=== PATIENT | female | born 1985 | race Caucasian/White ===

== ENCOUNTER 2017-11-16 22:24 | Emergency (ER) | payer MEDICAID ==
[2017-11-16 23:00] VITALS: TEMP 98.6; O2SAT 100
--- NOTE | 2017-11-16 23:24 | C.PDOC ---
History Of Present Illness 32 y/o female presents to the ED complaining of SOB and nasal congestion. Patient was seen by PMD this morning and given Zithromax and cough medication. States symptoms persisted tonight, prompting this ED visit. Patient also complains she was not prescribed an inhaler, requesting nebulizer treatment. Otherwise she denies fever, chills, nausea, vomiting, dizziness, leg pain/swelling, or other complaints. Time Seen by Provider: 11/16/17 23:24 Chief Complaint (Nursing): Shortness Of Breath History Per: Patient History/Exam Limitations: no limitations Onset/Duration Of Symptoms: Days Current Symptoms Are (Timing): Still Present Initiating Event: Out Of Medications Past Medical History Reviewed: Historical Data, Nursing Documentation, Vital Signs Vital Signs: Last Vital Signs Temp 98.6 F 11/16/17 22:53 Pulse 70 11/16/17 22:53 Resp 16 11/16/17 22:53 BP 95/67 L 11/16/17 22:53 Pulse Ox 100 11/16/17 22:53 - Medical History PMH: Asthma, Back Problems, Migraine Surgical History: No Surg Hx Family History: States: Unknown Family Hx - Social History Hx Tobacco Use: No Hx Alcohol Use: No Hx Substance Use: No - Immunization History Hx Tetanus Toxoid Vaccination: Yes Hx Influenza Vaccination: No Hx Pneumococcal Vaccination: Yes Review Of Systems Constitutional: Negative for: Fever, Chills ENT: Positive for: Nose Congestion Cardiovascular: Negative for: Chest Pain, Palpitations Respiratory: Positive for: Cough, Shortness of Breath Gastrointestinal: Negative for: Nausea, Vomiting Neurological: Negative for: Headache, Dizziness Physical Exam - Physical Exam Appears: Non-toxic, No Acute Distress, Other (Speaking in complete sentences) Skin: Warm, Dry Head: Normacephalic Eye(s): bilateral: Normal Inspection Ear(s): Bilateral: Normal Nose: Normal, No Discharge Throat: Normal (oropharynx clear), No Erythema, No Exudate Neck: Trachea Midline, Supple Chest: Symmetrical Cardiovascular: Rhythm Regular Respiratory: No Rales, No Rhonchi, No Wheezing Gastrointestinal/Abdominal: Soft, No Tenderness, No Distention Extremity: Bilateral: Atraumatic, Normal Color And Temperature Pulses: Left Dorsalis Pedis: Normal, Right Dorsalis Pedis: Normal Neurological/Psych: Oriented x3 ED Course And Treatment O2 Sat by Pulse Oximetry: 100 (RA) Pulse Ox Interpretation: Normal Progress Note: Administered duoneb treatment. Will reassess after treatment. Reevaluation Time: 01:07 Reassessment Condition: Improved Disposition Counseled Patient/Family Regarding: Studies Performed, Diagnosis, Need For Followup, Rx Given - Disposition Referrals: Catrachita Pitt MD [Medical Doctor] - Disposition: HOME/ ROUTINE Disposition Time: 23:24 Condition: FAIR Additional Instructions: Please finish all your antibiotics, and return if symptoms recur Prescriptions: Albuterol HFA [Ventolin HFA 90 mcg/actuation (8 g)] 2 puff IH [id number] #1 puff Instructions: Acute Bronchitis, Adult (DC) Forms: [facility] (Greek) - Clinical Impression Clinical Impression: Bronchitis - Scribe Statement The provider has reviewed the documentation as recorded by the Scribe (Lizabeth Cornejo) Provider Attestation: All medical record entries made by the Scribe were at my direction and personally dictated by me. I have reviewed the chart and agree that the record accurately reflects my personal performance of the history, physical exam, medical decision making, and the department course for this patient. I have also personally directed, reviewed, and agree with the discharge instructions and disposition.
[2017-11-16] MEDS ORDERED: Albuterol-Ipratrop 3 mg / 0.5 (3 ml) UD ONE (23:55)
[2017-11-16 23:59] VITALS: RESP 18
[2017-11-17] MEDS: Albuterol-Ipratrop 3 mg / 0.5 (3 ml) UD IH SCH ×2 (00:55→01:19)
[2017-11-17] MEDS ORDERED: Albuterol-Ipratrop 3 mg / 0.5 (3 ml) UD ONE (00:57)
[2017-11-17 01:29] VITALS: BP 118/72; PULSE 88
== END 2017-11-17 01:29 | disposition home or self-care (01) ==
LOC: C.ER 22:24
DX: J40 Bronchitis, not specified as acute or chronic (principal)

== ENCOUNTER 2018-01-10 17:04 | Emergency (ER) | payer MEDICAID ==
[2018-01-10 17:14] VITALS: BP 99/68; PULSE 88; RESP 18; TEMP 98; O2SAT 98
--- NOTE | 2018-01-10 17:53 | C.PDOC ---
History Of Present Illness 32 year old female presents to the ED for evaluation of headache for 3 days. Patient also complains of digitally and positionally reproducible chest discomfort. 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 She took two tablets of Tylenol twice yesterday, but none today. Patient denies fever, chills, shortness of breath, nausea, vomiting, or sick contacts. Time Seen by Provider: 01/10/18 17:26 Chief Complaint (Nursing): Headache History Per: Patient History/Exam Limitations: no limitations Onset/Duration Of Symptoms: Days (3) Current Symptoms Are (Timing): Still Present Quality: "Pain" Associated Symptoms: denies: Nausea, Vomiting Additional History Per: Patient Past Medical History Reviewed: Historical Data, Nursing Documentation, Vital Signs Vital Signs: Last Vital Signs Temp 98 F 01/10/18 17:11 Pulse 88 01/10/18 17:11 Resp 18 01/10/18 17:11 BP 99/68 L 01/10/18 17:11 Pulse Ox 98 01/10/18 17:11 - Medical History PMH: Asthma, Back Problems, Migraine Surgical History: No Surg Hx Family History: States: Unknown Family Hx - Social History Hx Tobacco Use: No Hx Alcohol Use: No Hx Substance Use: No - Immunization History Hx Tetanus Toxoid Vaccination: No Hx Influenza Vaccination: No Hx Pneumococcal Vaccination: No Review Of Systems Cardiovascular: Positive for: Other (chest discomfort ) Neurological: Positive for: Headache Physical Exam - Physical Exam Appears: Non-toxic, No Acute Distress Skin: Normal Color, Warm, Dry Head: Atraumatic, Normacephalic Eye(s): bilateral: Normal Inspection Ear(s): Bilateral: Normal Nose: Other (increased erythema with right-sided kissing turbinates ) Oral Mucosa: Moist Neck: Supple Chest: Symmetrical, No Deformity, Tenderness (digitally and positionaly reproducible to parasternal areas), 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 work cause Disposition Doctor Will See Patient In The: Office Counseled Patient/Family Regarding: Studies Performed, Diagnosis - Disposition Referrals: [facility] [Outside] [facility] [Outside] [facility] [Outside] [facility] [Outside] Disposition: HOME/ ROUTINE Disposition Time: 17:52 Condition: GOOD Additional Instructions: dolor de sondra porque de inflammaci'n de las pasajes nasales Motrin/advil/ibuprofeno 400-600 mg cada 6 horas arnel necessario Pseudafed 30 mg cada 6 horas arnel necessario (se descongestiona las pasajes nasales) Nasonex/Flonase: 1 espray cada lado del nariz cada 12 horas se baja inflammaci'n de las pasajes nasales Sigue en [facility] arnel necessario Instructions: Sinus Headache (DC), Costochondritis (DC) Forms: [facility] (Belarusian) Print Language: TAMAZIGHT - Clinical Impression Clinical Impression: Chest wall discomfort, Sinus headache - Scribe Statement The provider has reviewed the documentation as recorded by the Scribe (Alejandrina Crockett) Provider Attestation: All medical record entries made by the Scribe were at my direction and personally dictated by me. I have reviewed the chart and agree that the record accurately reflects my personal performance of the history, physical exam, medical decision making, and the department course for this patient. I have also personally directed, reviewed, and agree with the discharge instructions and disposition.
== END 2018-01-10 18:05 | disposition home or self-care (01) ==
LOC: C.ER 17:04
DX: R51 Headache (principal); R07.89 Other chest pain